=== PATIENT | female | born 1945 | race Caucasian/White ===

== ENCOUNTER 2018-09-25 14:21 | Inpatient (IN) ==
[2018-09-26] MEDS ORDERED: Loratadine 10 MG TABLET PO PRN (15:54)
[2018-09-26] MEDS ORDERED: Ipratropium/Albuterol Neb 3 ML IH PRN (15:55)
[2018-09-26] MEDS: *HR* OxyCODONE Immed Rel 5 MG TABLET PO PRN ×2 (17:51→23:37)
[2018-09-26 17:56] LABS: Bilirubin,Urine Negative (Negative); Blood,Urine Negative (Negative); Clarity,Urine Clear (Clear); Color,Urine Yellow (Yellow); Glucose,Urine (UA) Normal (Normal); Ketones,Urine Negative (Negative); Leukocyte Esterase,Urine Negative (Negative); Nitrite,Urine Negative (Negative); Protein,Urine Negative (Neg-Trace); Specific Gravity,Urine 1.015 (1.010-1.025); Urobilinogen,Urine Normal (Normal)
--- NOTE | 2018-09-26 19:10 | Internal Med History&Physical ---
Date of Encounter: 09/26/18 Time of Encounter: 20:22 Assessment and Plan (1) Status post reverse arthroplasty of right shoulder Current visit: Yes Status: Acute here for deconditioning associated with the shoulder surgery. her for pt/ot/rt to get her ambulating and back to her home environment. Prior to this she was living with her doing the cooking and cleaning and driving (2) Breast cancer Current visit: No Status: Acute will hold the letrozole due to the increased risk of thromboembolic and being less mobile with the recent surgery. Her partial mastectomy was done in October Qualifiers: Breast location: unspecified site of breast Estrogen receptor status: unspecified Patient sex: female Laterality: unspecified laterality Qualified Code(s): C50.919 - Malignant neoplasm of unspecified site of unspecified female breast (3) Anemia Current visit: No Status: Chronic will continue to follow check cbc in the am Qualifiers: Anemia type: unspecified type Qualified Code(s): D64.9 - Anemia, unspecified (4) Gout Current visit: No Status: Chronic will continue the allopurinol not a current issue Qualifiers: Gout site: unspecified site Gout etiology: unspecified cause Presence of tophus: without tophus Qualified Code(s): M1A.9XX0 - Chronic gout, unspecified, without tophus (tophi) (5) Barretts esophagus Current visit: No Status: Chronic will continue the ppi she gets her egd with gi Qualifiers: Mays's esophagus type: with dysplasia of unspecified degree Qualified Code(s): K22.719 - Mays's esophagus with dysplasia, unspecified; K22.71 - Mays's esophagus with dysplasia (6) Asthma Current visit: No Status: Chronic will add duonebs as needed. Qualifiers: Asthma persistence: unspecified Asthma complication type: unspecified Qualified Code(s): J45.909 - Unspecified asthma, uncomplicated Internal Medicine - H&P: HPI Chief complaint: here for rehab Admitted From: Hospital to Hospital Transfer History of present illness: Ms. Morales is a 73 year old female who a right reverse total shoulder replacement. post op she had problems caring for herself. She was sent here for rehabilitation. She is complaining of pain but is acceptable. She has not quite felt right today she has been nauseated she did have an episode of emesis shortly after she got here she states she will thicken the back of the squad on the right down here. She has not had any diarrhea but she has had several movements with getting the Colace at [facility]. She has not had any belly pain. Her asthma has not been bothering her she has not had any cough wheezing or shortness of breath. She feels tired she is not energetic. She has not had any chest pain palpitations. Her heart rate has been high at [place]. She denies any dysuria or urinary frequency hematuria or incontinence. She is resting comfortably in the bed she is answering questions appropriately she did get up to the toilet she did need help getting up out of bed but other than that was able to ambulate and get to the toilet. Past Med Surg Social Fam HX - Past Medical History Medical history: asthma, cancer (breast cacner), GERD, hyperlipidemia, hypertension, osteoporosis, other (paraesophageal hernia s/p repair, anemia) Additional medical history: breast cancer,Barretts esophagus,artificial joints,anemia,invasive ductal carcinoma of left breast Psychiatric history: anxiety, depression - Past Surgical History Surgical History: appendectomy, breast surgery (left partial mastectomy 10/2015, left breast bx), knee replacement (right), orthopedic, other (right reverse total shoulder, right knee arthroscopy), other (bps 1971, multiple egd, vein stripping, paraesophageal hernia repair, colonoscopy) Additional surgical history: right knee,EGD,right arthroscopic knee,right knee replacement,vein stripping,colonoscopy,paraesophageal hernia repair,left breast biopsy,left partial mastectomy. tubal ligation. hiatal hernia - Social History Smoking Status: Never smoker Smokeless Tobacco Status: No Alcohol use: none Drug use: none - Family History Mother Living Status: Hx Family Cardiac Disorders: No Hx Family Respiratory Disorders: No Hx Family Cancer: Yes (Throat and kidney cancer) Hx Family GI Disorders: No Hx Family Endocrine Disorder: No Hx Family Neuromuscular Disorders: No Hx Family Neurologic Disorders: No Hx Family HEENT Disorders: No Hx Family Autoimmune Disorders: No Father History Unknown: Yes Internal Medicine - H&P: Meds Allopurinol [Zyloprim 300 MG] 300 mg PO DAILY 10/28/15 [History] Gabapentin [Neurontin] 300 tab PO TID 10/28/15 [History] Omeprazole [PriLOSEC] 20 mg PO DAILY 10/28/15 [History] Albuterol Sulfate [Albuterol Inhaler] 90 mcg IH Q4HR PRN 11/09/15 [History] Loratadine [Allergy Relief] 10 mg PO DAILY PRN 01/29/17 [History] Cholecalciferol (D-3) [Vitamin D] 5,000 unit PO DAILY 03/18/18 [History] Docusate Sodium [Colace] 100 mg PO BID 5 Days #10 capsule 09/23/18 [Rx] FLUoxetine HCl [Fluoxetine HCl] 10 mg PO DAILY 09/23/18 [History] Lisinopril/Hydrochlorothiazide [Zestoretic 20-25 mg Tablet] 1 tab PO DAILY 09/23/18 [History] OxyCODONE Immed Rel [Roxicodone 5 MG] 5 mg PO Q6HR PRN 7 Days #28 tablet 09/23/18 [Rx] Tramadol HCl [Ultram] 50 tab PO BID PRN 09/23/18 [History] Allergy/AdvReac Type Severity Reaction Status Date / Time No Known Allergies Allergy Verified 09/23/18 07:40 All Systems PM: A 10-system review of systems was performed and is negative for pertinent findings except as documented above in the HPI. - Constitutional Constitutional: fatigue, no chills, no fever(s), no falls - EENT Eyes: no change in vision Nose, mouth and throat: no sore throat - Cardiovascular Cardiovascular ROS IM: no chest pain, no dyspnea, no lightheadedness, no palpitations, no syncope - Respiratory Respiratory: no cough, no dyspnea, no hemoptysis, no wheezing - Gastrointestinal Gastrointestinal: vomiting (Once today after getting out of the squad.), no abdominal pain, no constipation, no diarrhea, no hematemesis, no hematochezia, no melena, no nausea - Genitourinary Genitourinary: no dysuria, no hematuria, no urinary frequency, no urinary incontinence - Musculoskeletal Musculoskeletal ROS IM: arthralgias (Of her hips that is chronic ongoing issue), limited range of motion (Of the right shoulder) - Integumentary Integumentary IM: no pruritus, no rash - Neurological Neurological ROS: no paresthesias - Constitutional Vitals: Temp Pulse Resp BP Pulse Ox 98.4 F 108 18 142/72 96 09/26/18 14:58 01/03/19 14:58 09/26/18 14:58 09/26/18 14:58 09/26/18 14:58 General appearance: Present: A&O X 3, pleasant, obese, answers questions appropriately - Head Head exam: Present: atraumatic, normocephalic - Neck Neck exam general surgery: Present: supple, trachea midline. Absent: lymphadenopathy - Respiratory Respiratory exam: Present: CTAB - Cardiovascular Cardiovascular exam: Present: RRR. Absent: systolic murmur - GI/Abdominal GI/Abdominal exam: Present: normal bowel sounds, soft, no peritoneal signs. Absent: distended, guarding, tenderness - Extremities Exam Extremities exam: Present: pedal edema, warm. Absent: cyanotic, mottling - Incison Incision: Present: clean and dry, intact (With honeycomb dressing) - Skin Skin exam: Present: dry, warm Internal Med - H&P Results - Labs Labs: Urine 09/26/18 Range/Units 17:00 Urine Color Yellow (Yellow) Urine Clarity Clear (Clear) Urine pH 7.0 (5.0-8.0) pH Units Ur Specific [place] 1.015 (1.010-1.025) Urine Protein Negative (Neg-Trace) mg/dL Urine Glucose (UA) Normal (Normal) mg/dL
[2018-09-26] MEDS: Gabapentin 300 MG CAPSULE PO SCH (19:47)
[2018-09-27 05:05] LABS: Basophils % 0.6 %; Eosinophils # 0.3 K/mcL (0.0-0.6); Eosinophils % 4.4 %; Hematocrit 33.9 % (35.3-44.9); Hemoglobin 11.5 g/dL (11.5-15.4); Immature Granulocytes % 0.3 % (0-4); Lymphocytes # 1.3 K/mcL (0.6-4.6); Lymphocytes % 18.8 %; Mean Corpuscular HGB Conc 33.9 g/dL (31.6-35.5); Mean Corpuscular Hemoglobin 32.9 pg (28.0-33.3); Mean Corpuscular Volume 96.9 fL (83.0-100.0); Mean Platelet Volume 10.7 fL (9.4-12.4); Monocytes # 0.7 K/mcL (0.0-1.3); Monocytes % 10.8 %; Neutrophils # 4.5 K/mcL (1.6-8.9); Platelet Count 172 K/mcL (140-400); Segmented Neutrophils % 65.1 %
[2018-09-27] MEDS: *HR* OxyCODONE Immed Rel 5 MG TABLET PO PRN ×3 (05:12→18:26)
[2018-09-27] MEDS: *HR* Enoxaparin 40 MG/0.4 ML SYRINGE SQ SCH (05:13)
[2018-09-27 05:20] LABS: BUN/Creatinine Ratio 29 (6-26); Blood Urea Nitrogen 17 mg/dL (8-23); Calcium 9.2 mg/dL (8.6-10.3); Carbon Dioxide 32 mEq/L (23-29); Chloride 97 mEq/L (98-107); Glucose 108 mg/dL (70-105); Osmolality,Calculated 286 (280-300); Potassium 3.1 mEq/L (3.5-5.1); Sodium 137 mEq/L (136-145); eGFR For Non-African Americans > 60 (> 60)
--- NOTE | 2018-09-27 07:50 | Internal Med Progress Note ---
Date of Encounter: 09/27/18 Time of Encounter: 07:50 - Assessment and plan (1) Status post reverse arthroplasty of right shoulder Current Visit: Yes Status: Acute Assessment and plan: She thinks she is doing well from a right shoulder surgery point of view. She thinks the pain is under reasonable control with Percocet. She denies any cardiac or respiratory symptoms. Her bowel movements have been frequent and she has now declined Colace. She will be evaluated today for her therapies. (2) HTN (hypertension) Current Visit: Yes Status: Chronic Assessment and plan: Blood pressure is under good control. Stay in the same medication. Qualifiers: Hypertension type: unspecified Qualified Code(s): I10 - Essential (primary) hypertension (3) Anemia Current Visit: Yes Status: Chronic Assessment and plan: Hemoglobin but is 11.5. No obvious bleeding. Qualifiers: Anemia type: unspecified type Qualified Code(s): D64.9 - Anemia, unspecified (4) Gout Current Visit: No Status: Chronic Qualifiers: Gout site: unspecified site Gout etiology: unspecified cause Presence of tophus: without tophus Qualified Code(s): M1A.9XX0 - Chronic gout, unsp ecified, without tophus (tophi) (5) Barretts esophagus Current Visit: No Status: Chronic Qualifiers: Mays's esophagus type: with dysplasia of unspecified degree Qualified Code(s): K22.719 - Mays's esophagus with dysplasia, unspecified; K22.71 - Mays's esophagus with dysplasia (6) Asthma Current Visit: No Status: Chronic Assessment and plan: No acute pulmonary symptoms. Continue same medications. Qualifiers: Asthma persistence: unspecified Asthma complication type: unspecified Qualified Code(s): J45.909 - Unspecified asthma, uncomplicated (7) Hypokalemia Current Visit: Yes Status: Acute Assessment and plan: Mild hypokalemia noted today. Supplement added. Repeat potassium order for tomorrow. (8) DVT prophylaxis Current Visit: Yes Status: Acute Assessment and plan: Patient is on Lovenox for DVT prophylaxis. - Subjective Interval history: Patient thinks she is doing well. She thinks the "stronger pain pill" has been helpful. She denies any cardiac or respiratory symptoms. Her bowels are moving well, and she is declining the Colace now. She has not had PT or OT evaluation, that is pending today. - Constitutional Vitals: Temp Pulse Resp BP Pulse Ox 99.2 F 103 16 122/75 95 09/27/18 06:42 09/27/18 06:42 09/27/18 06:42 09/27/18 06:42 09/27/18 06:42 General appearance: Present: A&O X 3, pleasant, obese, answers questions appropriately - Respiratory Respiratory exam: Present: CTAB - Cardiovascular Cardiovascular exam: Present: RRR, +S1, +S2 - GI/Abdominal GI/Abdominal exam: Present: soft. Absent: tenderness - Extremities Exam Extremities exam: Absent: calf tenderness, pedal edema, tenderness - Incison Comments: Right anterior shoulder shows nicely healing incision with honeycomb dressing with clear overlay. No signs of bleeding or infection. She has appropriate tenderness. No significant bruising. Internal Medicine: Result - Labs CBC & Chem 7: 09/27/18 04:56 09/27/18 04:56 Labs: Short CBC 09/27/18 Range/Units 04:56 WBC 6.9 (4.3-11.1) K/mcL Hgb 11.5 (11.5-15.4) g/dL Hct 33.9 L (35.3-44.9) % Plt Count 172 (140-400) K/mcL Neutrophils # 4.5 (1.6-8.9) K/mcL BMP 09/27/18 04:56 Sodium 137 Potassium 3.1 L Chloride 97 L Carbon Dioxide 32 H BUN 17 Creatinine 0.58 L Glucose 108 H Calcium 9.2 Urine 09/26/18 Range/Units 17:00 Urine Color Yellow (Yellow) Urine Clarity Clear (Clear) Urine pH 7.0 (5.0-8.0) pH Units Ur Specific [place] 1.015 (1.010-1.025) Urine Protein Negative (Neg-Trace) mg/dL Urine Glucose (UA) Normal (Normal) mg/dL Potassium is slightly low. Consult Discharge Plan - Plan Referrals: Felisha Coyle MD [Primary Care Provider] -
[2018-09-27] MEDS: FLUoxetine HCl 10 MG CAPSULE PO SCH (08:43)
[2018-09-27] MEDS: Gabapentin 300 MG CAPSULE PO SCH ×3 (08:43→20:06)
[2018-09-27] MEDS: Cholecalciferol (D-3) 1,000 UNIT TABLET PO SCH (08:43)
[2018-09-27] MEDS: traMADol 50 MG TABLET PO PRN ×3 (08:45→20:06)
[2018-09-28] MEDS: *HR* OxyCODONE Immed Rel 5 MG TABLET PO PRN ×3 (05:05→19:12)
[2018-09-28] MEDS: *HR* Enoxaparin 40 MG/0.4 ML SYRINGE SQ SCH (05:05)
[2018-09-28 05:25] LABS: BUN/Creatinine Ratio 30 (6-26); Blood Urea Nitrogen 18 mg/dL (8-23); Calcium 9.2 mg/dL (8.6-10.3); Carbon Dioxide 33 mEq/L (23-29); Chloride 96 mEq/L (98-107); Glucose 106 mg/dL (70-105); Osmolality,Calculated 278 (280-300); Potassium 3.4 mEq/L (3.5-5.1); Sodium 133 mEq/L (136-145); eGFR For Non-African Americans > 60 (> 60)
[2018-09-28] MEDS: traMADol 50 MG TABLET PO PRN (08:13)
[2018-09-28] MEDS: FLUoxetine HCl 10 MG CAPSULE PO SCH (08:13)
[2018-09-28] MEDS: Gabapentin 300 MG CAPSULE PO SCH ×3 (08:14→22:36)
[2018-09-28] MEDS: Cholecalciferol (D-3) 1,000 UNIT TABLET PO SCH (08:14)
--- NOTE | 2018-09-28 12:54 | Internal Med Progress Note ---
Date of Encounter: 09/28/18 Time of Encounter: 12:52 - Assessment and plan (1) Status post reverse arthroplasty of right shoulder Current Visit: Yes Status: Acute Assessment and plan: She is continue with therapy and is asymptomatic other than postoperative pain which is controlled. (2) Hypokalemia Current Visit: Yes Status: Acute Assessment and plan: This persists and we will increase supplementation and check magnesium. (3) PSVT (paroxysmal supraventricular tachycardia) Current Visit: Yes Status: Acute Assessment and plan: This is verified by EKG and she has no ischemia. Perfusion and blood pressure seemed to be well maintained. However, will obtain serial troponins, hold therapy, treat her with a beta bunny (IV metoprolol worked before-she seems able to tolerate this from a respiratory standpoint.) We will use oral and IV as we are not cardiac unit and have no cardiac backup. We will obtain a follow- up EKG when her rate slows and tomorrow morning, as well. 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 Qualifiers: Estrogen receptor status: positive Qualified Code(s): C50.412 - Malignant neoplasm of upper-outer quadrant of left female breast; Z17.0 - Estrogen receptor positive status [ER+]; Z17.0 - Estrogen receptor positive status [ER+] (5) Barretts esophagus Current Visit: No Status: Chronic Assessment and plan: Clinically stable. We will continue home regimen and follow. Qualifiers: Mays's esophagus type: with dysplasia of unspecified degree Qualified Code(s): K22.719 - Mays's esophagus with dysplasia, unspecified; K22.71 - Mays's esophagus with dysplasia (6) Asthma Current Visit: No Status: Chronic Assessment and plan: No current findings, to exam. She is asymptomatic. Qualifiers: Asthma severity: unspecified severity Asthma persistence: unspecified Asthma complication type: unspecified Qualified Code(s): J45.909 - Unspecified asthma, uncomplicated - Subjective Interval history: Patient is having right shoulder pain but this is controlled with oxycodone. She says that between her right shoulder and left hip, she has frequent pain but is generally pleased with progress. She denies cardiac or pulmonary symptoms. She has no palpitations, lightheadedness or dizziness, weakness, etc. She feels she is moving bowels and bladder well. Patient has no complaint of chest discomfort, dyspnea, orthopnea, palpitations, nausea or vomiting, constipation or diarrhea, other changes in bowel habits, difficulty with urination, rash or itching, or other new complaints, except as mentioned above. Review of systems is otherwise negative. I discussed management of her care with nursing staff. - Constitutional Vitals: Temp Pulse Resp BP Pulse Ox 98.2 F 92 16 108/76 92 09/28/18 07:22 09/28/18 07:22 09/28/18 07:22 09/28/18 07:22 09/28/18 07:22 Exam: Examination: (Except as mentioned above): General: In no apparent distress. Alert and oriented 3. Nondiaphoretic. Head: Atraumatic and normocephalic. Respiratory: No use of accessory muscles. Lungs are clear throughout. Normal airflow. Cardiovascular: Markedly tachycardic with no murmur heard. The rhythm is regular but rapid. Abdomen: Bowel sounds are normal. No hepatosplenomegaly mass or tenderness appreciated. Obese and therefore difficult to palpate deeply. Patient is examined upright in chair and this also limits exam. Extremities: No cyanosis clubbing or edema. Skin: Warm and non-diaphoretic with no new lesions noted. Internal Medicine: Result - Labs CBC & Chem 7: 09/27/18 04:56 09/28/18 05:05 Labs: BMP 09/28/18 05:05 Sodium 133 L Potassium 3.4 L Chloride 96 L Carbon Dioxide 33 H BUN 18 Creatinine 0.61 Glucose 106 H Calcium 9.2 Consult Discharge Plan - Plan Referrals: Felisha Coyle MD [Primary Care Provider] -
[2018-09-29] MEDS: *HR* OxyCODONE Immed Rel 5 MG TABLET PO PRN ×5 (00:33→23:45)
[2018-09-29] MEDS: *HR* Enoxaparin 40 MG/0.4 ML SYRINGE SQ SCH (05:37)
[2018-09-29] MEDS: Cholecalciferol (D-3) 1,000 UNIT TABLET PO SCH (08:27)
[2018-09-29] MEDS: Gabapentin 300 MG CAPSULE PO SCH ×3 (08:27→21:14)
[2018-09-29] MEDS: FLUoxetine HCl 10 MG CAPSULE PO SCH (08:27)
[2018-09-29 16:32] LABS: Basophils # 0.1 K/mcL (0.0-0.2); Basophils % 0.7 %; Eosinophils # 0.4 K/mcL (0.0-0.6); Eosinophils % 5.1 %; Hematocrit 33.6 % (35.3-44.9); Hemoglobin 11.1 g/dL (11.5-15.4); Immature Granulocytes % 0.5 % (0-4); Lymphocytes # 1.6 K/mcL (0.6-4.6); Lymphocytes % 18.8 %; Mean Corpuscular Hemoglobin 32.9 pg (28.0-33.3); Mean Corpuscular Volume 99.7 fL (83.0-100.0); Mean Platelet Volume 11.3 fL (9.4-12.4); Monocytes # 1.1 K/mcL (0.0-1.3); Monocytes % 12.2 %; Neutrophils # 5.4 K/mcL (1.6-8.9); Platelet Count 203 K/mcL (140-400); Red Blood Count 3.37 M/mcL (3.82-4.97); Red Cell Distribution Width 14.3 % (11.5-14.5); Segmented Neutrophils % 62.7 %
--- NOTE | 2018-09-29 17:04 | Internal Med Progress Note ---
Date of Encounter: 09/29/18 Time of Encounter: 02:15 - Assessment and plan (1) Status post reverse arthroplasty of right shoulder Current Visit: Yes Status: Acute Assessment and plan: Clinically stable from this standpoint. (2) Hypokalemia Current Visit: Yes Status: Acute Assessment and plan: Will recheck tomorrow. (3) PSVT (paroxysmal supraventricular tachycardia) Current Visit: Yes Status: Acute Assessment and plan: After briefly starting IV Cardizem, in addition to oral metoprolol yesterday, she converted to sinus bradycardia. She has remained there with marginal blood pressure, thereafter. She had marginally elevated troponin at 0.7 and this fell 6 hours later to 0.5. EKG today shows only sinus bradycardia with no signs of ischemia. This was totally asymptomatic and the patient still has no complaints. I talked to her about the possibility of transferring to a cardiac unit, cardiology involvement, etc. She is not interested in any of this and explained the concerns and needing to make sure her safety is adequate she except some. She agrees cardiac consultation to determine whether or not we should continue the Cardizem, whether should she see an aircraft avionics technician, or have other procedure for other diagnosis of ischemia, etc. 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 Qualifiers: Mays's esophagus type: with dysplasia of unspecified degree Qualified Code(s): K22.719 - Mays's esophagus with dysplasia, unspecified; K22.71 - Mays's esophagus with dysplasia (6) Asthma Current Visit: No Status: Chronic Assessment and plan: No current signs or symptoms. Qualifiers: Asthma severity: unspecified severity Asthma persistence: unspecified Asthma complication type: unspecified Qualified Code(s): J45.909 - Unspecified asthma, uncomplicated - Time Spent With Patient Greater than 35 minutes - Subjective Interval history: The patient is totally asymptomatic from the standpoint of cardiopulmonary symptoms. She is irritated with repeated phlebotomy and telemetry. She wants no more phlebotomy and when I explained the fact that she had a slightly elevated troponin and the significance of myocardial injury, she accepts this and feels like the plan that we have is acceptable even though she is not pleased with it. I told her that we would have cardiology see tomorrow, if at all possible. She still has mild to moderate shoulder pain but is otherwise stable. Patient has no complaint of chest discomfort, dyspnea, orthopnea, palpitations, nausea or vomiting, constipation or diarrhea, other changes in bowel habits, difficulty with urination, rash or itching, or other new complaints, except as mentioned above. Review of systems is otherwise negative. I discussed management of her care with nursing staff. - Constitutional Vitals: Temp Pulse Resp BP Pulse Ox 98.1 F 64 16 103/72 93 09/29/18 12:21 09/29/18 12:21 09/29/18 12:21 09/29/18 12:21 09/29/18 12:21 Exam: Examination: (Except as mentioned above): General: In no apparent distress. Alert and oriented 3. Nondiaphoretic. Head: Atraumatic and normocephalic. Respiratory: No use of accessory muscles. Lungs are clear throughout. Normal airflow. Cardiovascular: Regular rate and rhythm without murmur appreciated. Abdomen: Bowel sounds are normal. No hepatosplenomegaly mass or tenderness appreciated. Obese and therefore difficult to palpate deeply. Patient is examined upright in chair and this also limits exam. Extremities: No cyanosis clubbing or edema. Skin: Warm and non-diaphoretic with no new lesions noted. Internal Medicine: Result - Labs CBC & Chem 7: 09/29/18 16:30 09/28/18 05:05 Labs: Short CBC 09/29/18 Range/Units 16:30 WBC 8.6 (4.3-11.1) K/mcL Hgb 11.1 L (11.5-15.4) g/dL Hct 33.6 L (35.3-44.9) % Plt Count 203 (140-400) K/mcL Neutrophils # 5.4 (1.6-8.9) K/mcL Cardiac Enzymes 09/28/18 09/29/18 09/29/18 Range/Units 18:50 00:38 07:25 Troponin I < 0.03 0.07 H* 0.05 H* (< 0.04) ng/mL Consult Discharge Plan - Plan Referrals: Felisha Coyle MD [Primary Care Provider] -
[2018-09-30 05:45] LABS: BUN/Creatinine Ratio 34 (6-26); Blood Urea Nitrogen 27 mg/dL (8-23); Calcium 9.2 mg/dL (8.6-10.3); Carbon Dioxide 29 mEq/L (23-29); Chloride 102 mEq/L (98-107); Glucose 97 mg/dL (70-105); Osmolality,Calculated 283 (280-300); Sodium 134 mEq/L (136-145); eGFR For Non-African Americans > 60 (> 60)
[2018-09-30] MEDS: *HR* Enoxaparin 40 MG/0.4 ML SYRINGE SQ SCH (05:54)
[2018-09-30] MEDS: *HR* OxyCODONE Immed Rel 5 MG TABLET PO PRN ×3 (05:55→20:30)
[2018-09-30] MEDS: FLUoxetine HCl 10 MG CAPSULE PO SCH (07:46)
[2018-09-30] MEDS: Gabapentin 300 MG CAPSULE PO SCH ×3 (07:46→20:30)
[2018-09-30] MEDS: Cholecalciferol (D-3) 1,000 UNIT TABLET PO SCH (07:46)
--- NOTE | 2018-09-30 08:26 | Internal Med Progress Note ---
Date of Encounter: 10/02/18 Time of Encounter: 08:26 - Assessment and plan (1) Status post reverse arthroplasty of right shoulder Current Visit: Yes Status: Acute Assessment and plan: here for pt, ot, ot, had to hold due to the tachycardia. heart rate is sinus today. will start therapy again. will let her shower if heart rate stays in range with the am therapy. (2) Breast cancer Current Visit: No Status: Acute Assessment and plan: holding med due to dvt risk Qualifiers: Breast location: unspecified site of breast Estrogen receptor status: unspecified Patient sex: female Laterality: unspecified laterality Qualified Code(s): C50.919 - Malignant neoplasm of unspecified site of unspecifi ed female breast (3) Anemia Current Visit: Yes Status: Chronic Assessment and plan: hg stable Qualifiers: Anemia type: unspecified type Qualified Code(s): D64.9 - Anemia, unspecified (4) Gout Current Visit: No Status: Chronic Assessment and plan: no current symptoms will continue with the allopurinol Qualifiers: Gout site: unspecified site Gout etiology: unspecified cause Chronicity: chronic Presence of tophus: without tophus Qualified Code(s): M1A.9XX0 - Chronic gout, unspecified, without tophus (tophi) (5) Barretts esophagus Current Visit: No Status: Chronic Assessment and plan: will continue the ppi, no current symptoms Qualifiers: Mays's esophagus type: with dysplasia of unspecified degree Qualified Code(s): K22.719 - Mays's esophagus with dysplasia, unspecified; K22.71 - Mays's esophagus with dysplasia (6) Asthma Current Visit: No Status: Chronic Assessment and plan: not currently an issue no wheeze no sob Qualifiers: Asthma severity: unspecified severity Asthma persistence: unspecified Asthma complication type: unspecified Qualified Code(s): J45.909 - Unspecified asthma, uncomplicated (7) DVT prophylaxis Current Visit: Yes Status: Acute (8) PSVT (paroxysmal supraventricular tachycardia) Current Visit: Yes Status: Acute Assessment and plan: normal sinus on diltiazem. got abhijeet with the beta bunny. will continue tele. echo - Subjective Interval history: she is ready to do therapy today, she is motivated to geta shower and get home. she did not have chest pain, denies palpitation, no n/v, no diaphoresis, no dizzy, appetite is good. no urine or bowel complaints. pain is acceptable. shoulder is sore. she is frustrated about the tachycardia though - Constitutional Vitals: Temp Pulse Resp BP Pulse Ox 98.1 F 75 15 125/80 92 09/30/18 07:37 09/30/18 07:37 09/30/18 07:37 09/30/18 07:37 09/30/18 07:37 General appearance: Present: A&O X 3, no acute distress, answers questions appropriately - Head Head exam: Present: atraumatic, normocephalic - Respiratory Respiratory exam: Present: CTAB - Cardiovascular Cardiovascular exam: Present: RRR, +S1, +S2 - GI/Abdominal GI/Abdominal exam: Present: normal bowel sounds, soft, no peritoneal signs. Absent: distended, guarding, tenderness - Extremities Exam Extremities exam: Present: warm. Absent: cyanotic, pedal edema - Incison Incision: Present: clean and dry, intact (honeycomb dressing intact) - Skin Skin exam: Present: dry, warm Internal Medicine: Result - Labs CBC & Chem 7: 10/02/18 05:40 10/02/18 05:40 Labs: Short CBC 09/29/18 Range/Units 16:30 WBC 8.6 (4.3-11.1) K/mcL Hgb 11.1 L (11.5-15.4) g/dL Hct 33.6 L (35.3-44.9) % Plt Count 203 (140-400) K/mcL Neutrophils # 5.4 (1.6-8.9) K/mcL BMP 09/30/18 05:27 Sodium 134 L Potassium 5.0 Chloride 102 Carbon Dioxide 29 BUN 27 H Creatinine 0.80 Glucose 97 Calcium 9.2 Cardiac Enzymes 09/30/18 Range/Units 05:27 Troponin I < 0.03 (< 0.04) ng/mL Consult Discharge Plan - Plan Referrals: Felisha Coyle MD [Primary Care Provider] -
--- NOTE | 2018-09-30 14:48 | Electrocardiograph Report ---
[place] [id number] Test Date: 2018-09-28 Pat Name: Maria Alejandra Morales Department: 2001 Room: 102 Gender: F [employer]: : 1945 Requested By: Arnulfo Reyes Order Number: [id number] Reading MD: Deisy Johnson Measurements Intervals [place] Rate: 167 P: [place]: 0 QRS: -3 QRSD: 78 T: 0 QT: 188 QTc: 279 Interpretive Statements SUPRAVENTRICULAR TACHYCARDIA NONSPECIFIC ST & T-WAVE ABNORMALITY Electronically Signed On 09-30-2018 14:47:20 EST by Deisy Johnson
--- NOTE | 2018-09-30 16:16 | Electrocardiograph Report ---
[address] [address] Test Date: 2018-09-29 Pat Name: Maria Alejandra Morales Department: 2001 Room: 102 Gender: F Investor Relations Associate: : 1945 Requested By: Arnulfo Reyes Order Number: [id number] Reading MD: Deisy Johnson Measurements Intervals [place] Rate: 60 P: 9 MD: 205 QRS: 5 QRSD: 86 T: 32 QT: 454 QTc: 454 Interpretive Statements SINUS RHYTHM LOW QRS VOLTAGE IN PRECORDIAL LEADS [QRS DEFLECTION < 1.0 mV IN CHEST LEADS] Electronically Signed On 09-30-2018 16:15:24 EST by Deisy Johnson
[2018-10-01] MEDS: *HR* OxyCODONE Immed Rel 5 MG TABLET PO PRN ×4 (00:32→20:10)
[2018-10-01] MEDS: *HR* Enoxaparin 40 MG/0.4 ML SYRINGE SQ SCH (05:41)
[2018-10-01 06:12] LABS: BUN/Creatinine Ratio 27 (6-26); Blood Urea Nitrogen 20 mg/dL (8-23); Calcium 9.5 mg/dL (8.6-10.3); Carbon Dioxide 27 mEq/L (23-29); Chloride 99 mEq/L (98-107); Glucose 106 mg/dL (70-105); Osmolality,Calculated 283 (280-300); Sodium 135 mEq/L (136-145); eGFR For Non-African Americans > 60 (> 60)
[2018-10-01] MEDS: FLUoxetine HCl 10 MG CAPSULE PO SCH (08:37)
[2018-10-01] MEDS: Gabapentin 300 MG CAPSULE PO SCH ×3 (08:37→20:10)
[2018-10-01] MEDS: Cholecalciferol (D-3) 1,000 UNIT TABLET PO SCH (08:37)
[2018-10-01] MEDS: traMADol 50 MG TABLET PO PRN ×2 (08:41→16:33)
--- NOTE | 2018-10-01 10:54 | Internal Med Progress Note ---
Date of Encounter: 10/02/18 Time of Encounter: 10:54 - Assessment and plan (1) Status post reverse arthroplasty of right shoulder Current Visit: Yes Status: Acute Assessment and plan: here for pt, ot, ot, had to hold due to the tachycardia. heart rate is sinus today. she is participating in therapy, (2) Breast cancer Current Visit: No Status: Acute Assessment and plan: holding med due to dvt risk Qualifiers: Breast location: unspecified site of breast Estrogen receptor status: unspecified Patient sex: female Laterality: unspecified laterality Qualified Code(s): C50.919 - Malignant neoplasm of unspecified site of unspecified female breast (3) Anemia Current Visit: Yes Status: Chronic Assessment and plan: hg stable Qualifiers: Anemia type: unspecified type Qualified Code(s): D64.9 - Anemia, unspecified (4) Gout Current Visit: No Status: Chronic Assessment and plan: no current symptoms will continue with the allopurinol Qualifiers: Gout site: unspecified site Gout etiology: unspecified cause Chronicity: chronic Presence of tophus: without tophus Qualified Code(s): M1A.9XX0 - Chronic gout, unspecified, without tophus (tophi) (5) Barretts esophagus Current Visit: No Status: Chronic Assessment and plan: will continue the ppi, no current symptoms Qualifiers: Mays's esophagus type: with dysplasia of unspecified degree Qualified Code(s): K22.719 - Mays's esophagus with dysplasia, unspecified; K22.71 - Mays's esophagus with dysplasia (6) Asthma Current Visit: No Status: Chronic Assessment and plan: not currently an issue no wheeze no sob Qualifiers: Asthma severity: unspecified severity Asthma persistence: unspecified Asthma complication type: unspecified Qualified Code(s): J45.909 - Unspecified asthma, uncomplicated (7) DVT prophylaxis Current Visit: Yes Status: Acute Assessment and plan: on lovenox (8) PSVT (paroxysmal supraventricular tachycardia) Current Visit: Yes Status: Acute Assessment and plan: normal sinus on diltiazem. got abhijeet with the beta bunny. will continue tele. echo showed 4 cm aorta. will discuss ct with pt.saw cardio will cont the diltiazem - Subjective Interval history: she is frustrated and ready to be home. no palpitations saw Sumeet last night at 7 pm. she liked the wheelchair that she sat in and in was comfortable. she did not have chest pain, denies palpitation, no n/v, no diaphoresis, no dizzy, appetite is good. no urine or bowel complaints. pain is acceptable. shoulder is sore. she is frustrated about the tachycardia though - Constitutional Vitals: Temp Pulse Resp BP Pulse Ox 98.1 F 90 15 107/79 90 10/01/18 08:35 10/01/18 08:35 10/01/18 08:35 10/01/18 08:35 10/01/18 08:35 General appearance: Present: A&O X 3, no acute distress, answers questions appropriately - Head Head exam: Present: atraumatic, normocephalic - Respiratory Respiratory exam: Present: CTAB - Cardiovascular Cardiovascular exam: Present: RRR, +S1, +S2. Absent: systolic murmur - GI/Abdominal GI/Abdominal exam: Present: normal bowel sounds, soft, no peritoneal signs. Absent: distended, guarding, mass, tenderness - Extremities Exam Extremities exam: Present: pedal edema - Incison Incision: Present: clean and dry, intact (honeycomb intact) - Skin Skin exam: Present: dry, warm. Absent: rash Internal Medicine: Result - Labs CBC & Chem 7: 10/02/18 05:40 10/02/18 05:40 Labs: BMP 10/01/18 05:50 Sodium 135 L Potassium 4.0 Chloride 99 Carbon Dioxide 27 BUN 20 Creatinine 0.75 Glucose 106 H Calcium 9.5 Consult Discharge Plan - Plan Referrals: Felisha Coyle MD [Primary Care Provider] -
[2018-10-02 05:51] LABS: Basophils # 0.1 K/mcL (0.0-0.2); Basophils % 0.8 %; Eosinophils # 0.3 K/mcL (0.0-0.6); Eosinophils % 4.3 %; Hematocrit 30.4 % (35.3-44.9); Hemoglobin 10.1 g/dL (11.5-15.4); Immature Granulocytes % 0.4 % (0-4); Lymphocytes # 1.1 K/mcL (0.6-4.6); Lymphocytes % 15.4 %; Mean Corpuscular HGB Conc 33.2 g/dL (31.6-35.5); Mean Corpuscular Hemoglobin 32.8 pg (28.0-33.3); Mean Corpuscular Volume 98.7 fL (83.0-100.0); Mean Platelet Volume 11.2 fL (9.4-12.4); Monocytes # 1.1 K/mcL (0.0-1.3); Neutrophils # 4.7 K/mcL (1.6-8.9); Platelet Count 197 K/mcL (140-400); Red Blood Count 3.08 M/mcL (3.82-4.97); Red Cell Distribution Width 14.4 % (11.5-14.5); Segmented Neutrophils % 64.1 %
[2018-10-02] MEDS: traMADol 50 MG TABLET PO PRN ×2 (05:57→19:36)
[2018-10-02] MEDS: *HR* Enoxaparin 40 MG/0.4 ML SYRINGE SQ SCH (05:58)
[2018-10-02 06:06] LABS: BUN/Creatinine Ratio 27 (6-26); Blood Urea Nitrogen 29 mg/dL (8-23); Calcium 9.4 mg/dL (8.6-10.3); Carbon Dioxide 29 mEq/L (23-29); Chloride 100 mEq/L (98-107); Glucose 100 mg/dL (70-105); Osmolality,Calculated 282 (280-300); Potassium 3.9 mEq/L (3.5-5.1); Sodium 133 mEq/L (136-145); eGFR For Non-African Americans 51 (> 60)
[2018-10-02] MEDS: Gabapentin 300 MG CAPSULE PO SCH ×3 (08:08→19:36)
[2018-10-02] MEDS: Cholecalciferol (D-3) 1,000 UNIT TABLET PO SCH (08:08)
[2018-10-02] MEDS: FLUoxetine HCl 10 MG CAPSULE PO SCH (08:08)
[2018-10-02] MEDS: *HR* OxyCODONE Immed Rel 5 MG TABLET PO PRN (11:47)
--- NOTE | 2018-10-02 13:48 | Internal Med Progress Note ---
Date of Encounter: 10/02/18 Time of Encounter: 14:54 - Assessment and plan (1) Status post reverse arthroplasty of right shoulder Current Visit: Yes Status: Acute Assessment and plan: here for pt, ot, ot, heart rate is sinus today. she is participating in therapy, she is getting loopy with the narcotic will increase the tramadol frequency and stop the narcotic, discussed with pt and (2) Breast cancer Current Visit: No Status: Acute Assessment and plan: holding med due to dvt risk Qualifiers: Breast location: unspecified site of breast Estrogen receptor status: unspecified Patient sex: female Laterality: unspecified laterality Qualified Code(s): C50.919 - Malignant neoplasm of unspecified site of unspecified female breast (3) Anemia Current Visit: Yes Status: Chronic Assessment and plan: hg stable Qualifiers: Anemia type: unspecified type Qualified Code(s): D64.9 - Anemia, unspecified (4) Gout Current Visit: No Status: Chronic Assessment and plan: no current symptoms will continue with the allopurinol Qualifiers: Gout site: unspecified site Gout etiology: unspecified cause Chronicity: chronic Presence of tophus: without tophus Qualified Code(s): M1A.9XX0 - Chronic gout, unspecified, without tophus (tophi) (5) Barretts esophagus Current Visit: No Status: Chronic Assessment and plan: will continue the ppi, no current symptoms Qualifiers: Mays's esophagus type: with dysplasia of unspecified degree Qualified Code(s): K22.719 - Mays's esophagus with dysplasia, unspecified; K22.71 - Mays's esophagus with dysplasia (6) Asthma Current Visit: No Status: Chronic Assessment and plan: not currently an issue no wheeze no sob Qualifiers: Asthma severity: unspecified severity Asthma persistence: unspecified Asthma complication type: unspecified Qualified Code(s): J45.909 - Unspecified asthma, uncomplicated (7) DVT prophylaxis Current Visit: Yes Status: Acute Assessment and plan: on lovenox (8) PSVT (paroxysmal supraventricular tachycardia) Current Visit: Yes Status: Acute Assessment and plan: normal sinus on diltiazem. got abhijeet with the beta bunny. will continue tele. echo showed 4 cm aorta. pt.saw cardio will cont the diltiazem (9) Ascending aorta dilatation Current Visit: Yes Status: Acute Assessment and plan: will order ct thorax (10) Elevated troponin Current Visit: Yes Status: Acute Assessment and plan: she saw cardio roberts. ceballos due to strain from the tachycardia - Subjective Interval history: walked to the gift show did well. no palpitations saw Sumeet . she did not have chest pain, denies palpitation, no n/v, no diaphoresis, no dizzy, appetite is good. no urine or bowel complaints. pain is acceptable. shoulder is sore. she does get loopy with the oxycodone, will stop that and increase the frequency of the tramadol that she tolerates ok - Constitutional Vitals: Temp Pulse Resp BP Pulse Ox 98.1 F 75 15 106/68 94 10/02/18 05:53 10/02/18 05:53 10/02/18 05:53 10/02/18 05:53 10/02/18 05:53 General appearance: Present: A&O X 3, no acute distress, answers questions appropriately Internal Medicine: Result - Labs CBC & Chem 7: 10/02/18 05:40 10/02/18 05:40 Labs: Short CBC 10/02/18 Range/Units 05:40 WBC 7.4 (4.3-11.1) K/mcL Hgb 10.1 L (11.5-15.4) g/dL Hct 30.4 L (35.3-44.9) % Plt Count 197 (140-400) K/mcL Neutrophils # 4.7 (1.6-8.9) K/mcL BMP 10/02/18 05:40 Sodium 133 L Potassium 3.9 Chloride 100 Carbon Dioxide 29 BUN 29 H Creatinine 1.06 Glucose 100 Calcium 9.4 Consult Discharge Plan - Plan Referrals: Felisha Coyle MD [Primary Care Provider] -
[2018-10-02] MEDS ORDERED: ISOVUE-370 200 ML INFUS..BTL IV ONE (14:52)
[2018-10-02] MEDS ORDERED: ISOVUE-370 100 ML INFUS..BTL IVP ONE (15:02)
[2018-10-03] MEDS: traMADol 50 MG TABLET PO PRN ×3 (05:54→23:18)
[2018-10-03] MEDS: *HR* Enoxaparin 40 MG/0.4 ML SYRINGE SQ SCH (05:54)
[2018-10-03] MEDS: FLUoxetine HCl 10 MG CAPSULE PO SCH (08:33)
[2018-10-03] MEDS: Gabapentin 300 MG CAPSULE PO SCH ×3 (08:33→20:24)
[2018-10-03] MEDS: Cholecalciferol (D-3) 1,000 UNIT TABLET PO SCH (08:33)
--- NOTE | 2018-10-03 12:32 | Internal Med Progress Note ---
Date of Encounter: 10/03/18 Time of Encounter: 12:56 - Assessment and plan (1) Status post reverse arthroplasty of right shoulder Current Visit: Yes Status: Acute Assessment and plan: here for pt, ot, ot, heart rate is sinus today. she is participating in therapy,she is doing ok with holding the narcotic and just taking tramdol. states she is not loopy now. going home tomorrow. pain is acceptable will see ortho on sunday (2) Breast cancer Current Visit: No Status: Acute Assessment and plan: holding med due to dvt risk Qualifiers: Breast location: unspecified site of breast Estrogen receptor status: unspecified Patient sex: female Laterality: unspecified laterality Qualified Code(s): C50.919 - Malignant neoplasm of unspecified site of unspecified female breast (3) Anemia Current Visit: Yes Status: Chronic Assessment and plan: hg stable Qualifiers: Anemia type: unspecified type Qualified Code(s): D64.9 - Anemia, unspe cified (4) Gout Current Visit: No Status: Chronic Assessment and plan: no current symptoms will continue with the allopurinol Qualifiers: Gout site: unspecified site Gout etiology: unspecified cause Chronicity: chronic Presence of tophus: without tophus Qualified Code(s): M1A.9XX0 - Chronic gout, unspecified, without tophus (tophi) (5) Barretts esophagus Current Visit: No Status: Chronic Assessment and plan: will continue the ppi, no current symptoms Qualifiers: Mays's esophagus type: with dysplasia of unspecified degree Qualified Code(s): K22.719 - Mays's esophagus with dysplasia, unspecified; K22.71 - Mays's esophagus with dysplasia (6) Asthma Current Visit: No Status: Chronic Assessment and plan: not currently an issue no wheeze no sob Qualifiers: Asthma severity: unspecified severity Asthma persistence: unspecified As thma complication type: unspecified Qualified Code(s): J45.909 - Unspecified asthma, uncomplicated (7) DVT prophylaxis Current Visit: Yes Status: Acute Assessment and plan: on lovenox (8) PSVT (paroxysmal supraventricular tachycardia) Current Visit: Yes Status: Acute Assessment and plan: normal sinus on diltiazem. got abhijeet with the beta bunny. will continue te le. echo showed 4 cm aorta. pt.saw cardio will cont the diltiazem (9) Ascending aorta dilatation Current Visit: Yes Status: Acute Assessment and plan: on the echo 3.[address], no aneurysm, will not need further follow up (10) Elevated troponin Current Visit: Yes Status: Acute Assessment and plan: she saw cardio roberts. ceballos due to strain from the tachycardia (11) Renal cyst Current Visit: Yes Status: Acute Assessment and plan: noted on the ct scan benign appearing will not need further follow up - Subjective Interval history: . no palpitations. she did not have chest pain, denies palpitation, no n/v, no diaphoresis, no dizzy, appetite is good. no urine or bowel complaints. pain is acceptable. shoulder is sore. seh did ok with stopping the oxycodone and just using the ultram she is not as confused - Constitutional Vitals: Temp Pulse Resp BP Pulse Ox 97.6 F 75 14 104/70 93 10/03/18 05:42 10/03/18 05:42 10/03/18 05:42 10/03/18 05:42 10/03/18 05:42 General appearance: Present: A&O X 3, no acute distress, answers questions appropriately - Head Head exam: Present: atraumatic, normocephalic - Neck Neck exam general surgery: Present: normal inspection, supple. Absent: lymphade nopathy - Respiratory Respiratory exam: Present: CTAB - Cardiovascular Cardiovascular exam: Present: RRR, +S1, +S2. Absent: systolic murmur - GI/Abdominal GI/Abdominal exam: Present: normal bowel sounds, soft, no peritoneal signs. Absent: distended, mass - Extremities Exam Extremities exam: Present: warm. Absent: pedal edema - Incison Incision: Present: clean and dry, intact. Absent: erythema - Skin Skin exam: Present: dry, warm. Absent: rash Internal Medicine: Result - Labs CBC & Chem 7: 10/02/18 05:40 10/02/18 05:40 - Impressions Impressions Chest CTA 10/02/18 14:52 IMPRESSION: Ectasia of the thoracic aorta. No aneurysm is identified. No acute vascular abnormality is appreciated. Moderate-sized hiatal hernia. Mild diffuse fatty infiltration of the liver. D/ / Jose Alejandro Dillon MD / Jose Alejandro Dillon MD Interpreting Provider: Jose Alejandro Dillon MD Consult Discharge Plan - Plan Referrals: Felisha Coyle MD [Primary Care Provider] - Prescriptions: Tramadol HCl [Ultram] 50 tab PO Q6HR PRN 7 Days #30 tablet PRN Reason: Mild To Moderate Pain Diltiazem CD (24hr) [Cardizem CD] 120 mg PO DAILY #30 cap.er.24h
--- NOTE | 2018-10-03 12:56 | Discharge Summary ---
Date of Encounter: 10/04/18 Time of Encounter: 12:32 - Discharge Diagnosis (1) Status post reverse arthroplasty of right shoulder Priority: Primary Status: Acute Comments: He came here because of the deconditioning after her reverse right shoulder. She had PT OT RT. She did progressed met her goal she was felt safe to go home. She was sent home with family. Discussed that I will give her a couple of days of Ultram but after that all further pain medicine needs to go through or so. She was get. On the narcotics that she was switched over to tramadol that did control her pain for the 3 days prior to her being discharged. At home with 30 pills and she was instructed and her daughter was notified over phone that any further pain medication would have to come from orthotopic discussed also that she is 12 weeks postop that continue narcotics long-term is not advisable and that she is good have to be weaned off these. (2) Breast cancer Priority: Secondary Status: Acute Comments: She will we did hold her medication due to the DVT risk she was an active while she was here discussed that if she is active in a week then she can go ahead and restart that but she is aware of the risk of the DVT with this medication especially with inactivity and postop she is going to discuss that with her oncologist. Qualifiers: Breast location: unspecified site of breast Estrogen receptor status: unspecified Patient sex: female Laterality: unspecified laterality Qualified Code(s): C50.919 - Malignant neoplasm of unspecified site of unspecified female breast (3) Anemia Priority: Secondary Status: Chronic Comments: Stable postop Qualifiers: Anemia type: unspecified type Qualified Code(s): D64.9 - Anemia, unspecified (4) Gout Priority: Secondary Status: Chronic Comments: sHe did not Have any troubles without this admission she was continued on her home dose of allopurinol. Qualifiers: Gout site: unspecified site Gout etiology: unspecified cause Chronicity: chronic Presence of tophus: without tophus Qualified Code(s): M1A.9XX0 - Chronic gout, unspecified, without tophus (tophi) (5) Barretts esophagus Priority: Secondary Status: Chronic Comments: That was nonissue she was kept on her home PPI. Qualifiers: Mays's esophagus type: with dysplasia of unspecified degree Qualified Code(s): K22.719 - Mays's esophagus with dysplasia, unspecified; K22.71 - Mays's esophagus with dysplasia (6) Asthma Priority: Secondary Status: Chronic Comments: That was not an issue this admission she did not have any cough wheezing or shortness of breath Qualifiers: Asthma severity: unspecified severity Asthma persistence: unspecified Asthma complication type: unspecified Qualified Code(s): J45.909 - Unspecified asthma, uncomplicated (7) DVT prophylaxis Priority: Secondary Status: Acute Comments: She was on Lovenox (8) PSVT (paroxysmal supraventricular tachycardia) Priority: Secondary Status: Acute Comments: She did have an episode where she had SVT she did receive IV Cardizem she did receive metoprolol but that made her bradycardic she continued on the IV Cardizem and then was transferred over to by mouth Cardizem her heart rate did remain in range afterwards. She had sinus rhythm she did see Shaan she had an echo he did not recommend any further changes in her medication will send her home on Cardizem as an outpatient. (9) Ascending aorta dilatation Priority: Secondary Status: Acute Comments: This was noted on the trans-thoracic echo. She underwent a CT scan that did not show any aortic aneurysm the aorto measured at 3.7 cm. No further follow-up is needed on this. There was an incidental calcified granuloma and along no further follow-up is warranted on that as well. (10) Elevated troponin Priority: Secondary Status: Acute Comments: He has no cardiac strain when she had the tachycardia into the 160s. On her troponin did come come down it was only a mild elevation she did see Sumeet she did have an echo. She will follow-up with Sumeet as an outpatient. (11) Renal cyst Priority: Secondary Status: Acute Comments: Discussed this is an incidental finding on her CT scan and that no further follow-up is warranted it is been present in the past she is aware of this. Discussed this with her present. Hospital course: Ms. Morales is a 73 year old female Came to [facility] for rehabilitation after her right reverse total shoulder arthroplasty. She had difficulty get not moving around she had deconditioning postop. She did progress with PT OT and RT she did eventually meet her goals where she was felt safe to go home. Although she really likes her stay here and was hesitant about going home. She was concerned about things like getting her socks and shoes on. Therapy did work with with her to help improve those skills. Her is also able to help care for her. I did verify this with the that he was able to help her. She has 4 daughters and some of them are very involved in her care. She did develop an episode of SVT that she got metoprolol that made her bradycardic she ended up on IV Cardizem that was converted to oral Cardizem. She remained on telemetry for the remainder of the stay after she was converted to by mouth Cardizem every 6 hours her heart rate remained in range she was converted over to long-acting 2 days prior to discharge and her heart rate still remained in range. She saw Dr. Fay comes her troponins did elevate and she did have an echo there was a questionable dilated aortic root she underwent a CT scan of her thorax which showed no aortic aneurysm with an aorta of 3.7 cm there is an incidental calcified granuloma in the long. There was a renal cyst that was present prior. She was aware of these findings and there was no need for further follow-up on that. Her asthma gout and lipids did not present problems during the stay. We did change her she from narcotic pain medicine as she was getting loopy with that stable on just Ultram for the 3 days prior to discharge. Discussed with her the need to lean narcotic pain medicine due to the risk of respiratory suppression the risk of confusion and falls. Also that she is postop and is for postop pain and that eventually this medicines would have to be stopped. - Time Spent with Patient Total time spent providing and/or coordinating discharge services: - Discharge Medications Prescriptions: Tramadol HCl [Ultram] 50 tab PO Q6HR PRN 7 Days #30 tablet PRN Reason: Mild To Moderate Pain Diltiazem CD (24hr) [Cardizem CD] 120 mg PO DAILY #30 cap.er.24h Home Medications: Allopurinol [Zyloprim 300 MG] 300 mg PO DAILY 10/28/15 [History] Gabapentin [Neurontin] 300 tab PO TID 10/28/15 [History] Omeprazole [PriLOSEC] 20 mg PO DAILY 10/28/15 [History] Albuterol Sulfate [Albuterol Inhaler] 90 mcg IH Q4HR PRN 11/09/15 [History] Loratadine [Allergy Relief] 10 mg PO DAILY PRN 01/29/17 [History] Cholecalciferol (D-3) [Vitamin D] 5,000 unit PO DAILY 03/18/18 [History] FLUoxetine HCl [Fluoxetine HCl] 10 mg PO DAILY 09/23/18 [History] Lisinopril/Hydrochlorothiazide [Zestoretic 20-25 mg Tablet] 1 tab PO DAILY 09/23/18 [History] Calcium Carbonate [Tums] 1,000 mg PO Q4HR PRN tab.chew 10/03/18 [Rx] Diltiazem CD (24hr) [Cardizem CD] 120 mg PO DAILY #30 cap.er.24h 10/03/18 [Rx] Docusate [Colace] 100 mg PO BID PRN capsule 10/03/18 [Rx] Potassium Chloride 10 meq PO DAILY tab.er.prt 10/03/18 [Rx] Tramadol HCl [Ultram] 50 tab PO Q6HR PRN 7 Days #30 tablet 10/03/18 [Rx] Allergies/Adverse Reactions: Allergy/AdvReac Type Severity Reaction Status Date / Time No Known Allergies Allergy Verified 09/23/18 07:40 Date of admission: 09/26/18 14:51 Primary care physician: Felisha Coyle MD Consults: 09/26/18 15:16 Consult to Occupational Therapy [CONS] Routine Comment: Evaluate, develop and implement POC Reason for Consult: eval Does patient have active BEDREST order?: No Is patient medically & hemodynamically stable?: Yes Consult to Physical Therapy [CONS] Routine Comment: Evaluate, develop and implement POC Reason for Consult: eval Does patient have active BEDREST order?: No Is patient medically & hemodynamically stable?: Yes Consult to Recreational Therapy [CONS] Routine Comment: Evaluate, develop and implement POC Consult to Polystyrene Molding Machine Tender [CONS] Routine Reason for SW Consult: eval d/c planning 09/26/18 16:02 Consult to Physical Medicine/Rehab [CONS] Routine Reason for Consult: admit to rehab Time Notified: 16:03 Call Completed: Yes 09/29/18 14:15 Consult to Cardiology [CONS] Routine Comment: Sumeet Consulting Provider: Cardiology Margaret Reason for Consult: psvt Call Completed: No - Constitutional Vitals: Temp Pulse Resp BP Pulse Ox 97.6 F 75 14 104/70 93 10/03/18 05:42 10/03/18 05:42 10/03/18 05:42 10/03/18 05:42 10/03/18 05:42 General appearance: Present: A&O X 3, no acute distress, answers questions appropriately - Head Head exam: Present: atraumatic - Neck Neck exam general surgery: Present: supple, trachea midline. Absent: lymphadenopathy - Respiratory Respiratory exam: Present: CTAB - Cardiovascular Cardiovascular exam: Present: RRR, +S1, +S2. Absent: systolic murmur - GI/Abdominal GI/Abdominal exam: Present: normal bowel sounds, soft, no peritoneal signs. Absent: distended, guarding - Extremities Exam Extremities exam: Present: warm. Absent: pedal edema - Incison Incision: Present: clean and dry, intact - Skin Skin exam: Present: dry, warm - Patient Status Disposition: Home, Self-Care Condition: Good Overall status at discharge: patient is progressing back to baseline - Discharge Instructions Follow Up With: Felisha Coyle MD [Primary Care Provider] - 10/08/18 1:30 pm - Diet and Activity Activity: increase activity as tolerated
[2018-10-03] MEDS ORDERED: Diltiazem CD (24hr) 120 MG CAPSULE PO SCH (13:00)
[2018-10-03] MEDS: Diltiazem SR (12hr) 60 MG CAPSULE PO SCH (18:28)
[2018-10-04] MEDS: *HR* Enoxaparin 40 MG/0.4 ML SYRINGE SQ SCH (06:12)
[2018-10-04] MEDS: Diltiazem SR (12hr) 60 MG CAPSULE PO SCH (06:12)
[2018-10-04] MEDS: traMADol 50 MG TABLET PO PRN (06:13)
[2018-10-04] MEDS: FLUoxetine HCl 10 MG CAPSULE PO SCH (08:43)
[2018-10-04] MEDS: Gabapentin 300 MG CAPSULE PO SCH ×2 (08:43→15:13)
[2018-10-04] MEDS: Cholecalciferol (D-3) 1,000 UNIT TABLET PO SCH (08:43)
[2018-10-04] MEDS ORDERED: Diltiazem CD (24hr) 120 MG CAPSULE PO SCH (09:00)
[2018-10-04 11:35] VITALS: BP 114/83
[2018-10-04] MEDS ORDERED: Acetaminophen 325 MG TABLET PO PRN (12:11)
== END 2018-10-04 15:14 | disposition home or self-care (01) | DRG 560 ==
LOC: INPGRE 09-26 14:51
PROVIDERS: ADMIT Family Medicine; ATTEND Family Medicine

== ENCOUNTER 2019-03-18 15:00 | Inpatient (IN) ==
[2019-03-21] MEDS: Gabapentin 300 MG CAPSULE PO SCH (22:30)
[2019-03-21] MEDS: *HR* OxyCODONE Immed Rel 5 MG TABLET PO PRN (22:30)
[2019-03-22] MEDS: *HR* OxyCODONE Immed Rel 5 MG TABLET PO PRN ×3 (05:42→20:24)
[2019-03-22] MEDS: *HR* Enoxaparin 30 MG/0.3 ML SYRINGE SQ SCH ×2 (05:42→17:25)
[2019-03-22 05:49] LABS: Basophils % 0.4 %; Eosinophils # 0.4 K/mcL (0.0-0.6); Eosinophils % 6.3 %; Hematocrit 23.6 % (35.3-44.9); Hemoglobin 7.6 g/dL (11.5-15.4); Immature Granulocytes % 0.6 % (0-4); Lymphocytes # 1.2 K/mcL (0.6-4.6); Lymphocytes % 18.3 %; Mean Corpuscular HGB Conc 32.2 g/dL (31.6-35.5); Mean Corpuscular Hemoglobin 32.1 pg (28.0-33.3); Mean Corpuscular Volume 99.6 fL (83.0-100.0); Monocytes # 1.2 K/mcL (0.0-1.3); Monocytes % 17.4 %; Neutrophils # 3.9 K/mcL (1.6-8.9); Platelet Count 158 K/mcL (140-400); Red Blood Count 2.37 M/mcL (3.82-4.97); Red Cell Distribution Width 14.6 % (11.5-14.5); White Blood Count 6.8 K/mcL (4.3-11.1)
[2019-03-22 06:08] LABS: BUN/Creatinine Ratio 37 (6-26); Blood Urea Nitrogen 23 mg/dL (8-23); Calcium 9.2 mg/dL (8.6-10.3); Carbon Dioxide 31 mEq/L (23-29); Chloride 99 mEq/L (98-107); Glucose 103 mg/dL (70-105); Osmolality,Calculated 282 (280-300); Potassium 4.3 mEq/L (3.5-5.1); Sodium 134 mEq/L (136-145); eGFR For African Americans > 60 (> 60); eGFR For Non-African Americans > 60 (> 60)
[2019-03-22] MEDS: FLUoxetine HCl 10 MG CAPSULE PO SCH (08:55)
[2019-03-22] MEDS: Cholecalciferol (D-3) 1,000 UNIT (25MCG) TABLET PO SCH (08:55)
[2019-03-22] MEDS: Magnesium Oxide 400 MG TABLET PO SCH (08:55)
[2019-03-22] MEDS: Gabapentin 300 MG CAPSULE PO SCH ×2 (08:55→20:25)
[2019-03-22] MEDS: Diltiazem CD (24hr) 120 MG CAPSULE PO SCH (08:55)
[2019-03-22] MEDS: Metoprolol XL (24 HR) Succ 25 MG TAB.ER.24H PO SCH (09:36)
--- NOTE | 2019-03-22 13:10 | Internal Med History&Physical ---
Date of Encounter: 03/22/19 Time of Encounter: 13:05 Internal Medicine - H&P: HPI Admitted From: Hospital to Hospital Transfer Plans for Post Hospital Care: Home History of present illness: Ms. Morales is a 73 year old female Past Med Surg Social Fam HX - Past Medical History Medical history: arthritis, asthma, cancer, GERD, hyperlipidemia, hypertension, osteoporosis, other Additional medical history: breast cancer,Barretts esophagus,artificial joint s,anemia,invasive ductal carcinoma of left breast Psychiatric history: anxiety, depression - Past Surgical History Surgical History: appendectomy, breast surgery, knee replacement, orthopedic, other, other Additional surgical history: right knee,EGD,right arthroscopic knee,right knee replacement,vein stripping,colonoscopy,paraesophageal hernia repair,left breast biopsy,left lumpectomy with one month radiation. tubal ligation. hiatal hernia - Social History Smoking Status: Never smoker Smokeless Tobacco Status: No Alcohol use: none Drug use: none - Family History Mother Living Status: Hx Family Cardiac Disorders: No Hx Family Respiratory Disorders: No Hx Family Cancer: Yes (Throat cancer) Hx Family GI Disorders: No Hx Family Endocrine Disorder: No Hx Family Neuromuscular Disorders: No Hx Family Neurologic Disorders: No Hx Family HEENT Disorders: No Hx Family Autoimmune Disorders: No Brother Hx Family Cancer: Yes (head/neck ca) Father History Unknown: Yes Internal Medicine - H&P: Meds Allopurinol [Zyloprim 300 MG] 300 mg PO DAILY 10/28/15 [History] Gabapentin [Neurontin] 300 tab PO BID 10/28/15 [History] Omeprazole [PriLOSEC] 20 mg PO DAILY 10/28/15 [History] FLUoxetine HCl [Fluoxetine HCl] 10 mg PO DAILY 09/23/18 [History] Calcium Carbonate [Calcium] 500 mg PO DAILY 10/25/18 [History] Atorvastatin [Lipitor] 40 mg PO HS 01/20/19 [History] Letrozole [Femara] 2.5 mg PO DAILY 01/20/19 [History] Diltiazem CD (24hr) [Cardizem CD] 120 mg PO DAILY 02/06/19 [History] Albuterol Sulfate [Albuterol Inhaler] 2 puff IH Q4HR PRN 03/17/19 [History] Cholecalciferol (D-3) [Vitamin D] 5,000 unit PO DAILY 03/17/19 [History] Lisinopril/Hydrochlorothiazide [Zestoretic 10-12.5 mg Tablet] 1 tab PO DAILY 03/17/19 [History] Magnesium Oxide [Magnesium] 400 mg PO DAILY 03/17/19 [History] Metoprolol XL (24 HR) Succ [Toprol Xl] 25 mg PO DAILY 03/17/19 [History] Enoxaparin [Lovenox] 30 mg SQ Q12HR 14 Days #28 syringe 03/19/19 [Rx] Ferrous Sulfate 325 mg PO BIDWM tablet 03/19/19 [Rx] OxyCODONE Immed Rel [Roxicodone 5 MG] 5 mg PO Q4HR PRN 03/21/19 [History] Tramadol HCl [Ultram] 1 tab PO BID PRN 03/21/19 [History] Allergy/AdvReac Type Severity Reaction Status Date / Time No Known Allergies Allergy Verified 03/17/19 07:05 All Systems PM: A 10-system review of systems was performed and is negative for pertinent findings except as documented above in the HPI. - Breasts Additional comments: HZ OF DUCTAL BREAST CA - Cardiovascular Cardiovascular ROS IM: irregular heart rhythm Additional comments: PAROXYSMAL SUPERVENTRICULAR TACHYCARDIA,htn,hyPERLIPIDEMIA - Constitutional Vitals: Temp Pulse Resp BP Pulse Ox 98.3 F 100 16 104/69 99 03/22/19 06:50 03/22/19 11:30 03/22/19 11:30 03/22/19 11:30 03/22/19 11:30 General appearance: Present: A&O X 3, pleasant, answers questions appropriately - Head Head exam: Present: atraumatic, normocephalic - Neck Neck exam general surgery: Present: supple, trachea midline. Absent: lymphadenopathy - Respiratory Respiratory exam: Present: CTAB. Absent: accessory muscle use, rales, rhonchi, wheezes - Cardiovascular Cardiovascular exam: Present: RRR, +S1, +S2. Absent: diastolic murmur, gallop, rubs, systolic murmur - GI/Abdominal GI/Abdominal exam: Present: normal bowel sounds, soft, no peritoneal signs. Absent: distended, tenderness - Extremities Exam Extremities exam: Present: normal inspection, warm, radial pulses palpable and symmetrical. Absent: calf tenderness, cyanotic, pedal edema - Neurological Exam Neurological exam: Present: abnormal gait, CN II-XII intact, oriented X3, no focal deficits. Absent: pronater drift, facial droop, speech deficit Internal Med - H&P Results - Labs CBC & Chem 7: 03/22/19 05:25 03/22/19 05:25 Labs: Short CBC 03/22/19 Range/Units 05:25 WBC 6.8 (4.3-11.1) K/mcL Hgb 7.6 L (11.5-15.4) g/dL Hct 23.6 L (35.3-44.9) % Plt Count 158 (140-400) K/mcL Neutrophils # 3.9 (1.6-8.9) K/mcL BMP 03/22/19 05:25 Sodium 134 L Potassium 4.3 Chloride 99 Carbon Dioxide 31 H BUN 23 Creatinine 0.62 Glucose 103 Calcium 9.2
[2019-03-22] MEDS: traMADol 50 MG TABLET PO PRN (23:14)
[2019-03-23] MEDS: *HR* OxyCODONE Immed Rel 5 MG TABLET PO PRN ×4 (02:46→21:07)
[2019-03-23] MEDS: *HR* Enoxaparin 30 MG/0.3 ML SYRINGE SQ SCH ×2 (05:13→16:46)
[2019-03-23] MEDS: Gabapentin 300 MG CAPSULE PO SCH ×2 (07:34→21:08)
[2019-03-23] MEDS: Metoprolol XL (24 HR) Succ 25 MG TAB.ER.24H PO SCH (07:35)
[2019-03-23] MEDS: FLUoxetine HCl 10 MG CAPSULE PO SCH (07:35)
[2019-03-23] MEDS: Diltiazem CD (24hr) 120 MG CAPSULE PO SCH (07:35)
[2019-03-23] MEDS: Cholecalciferol (D-3) 1,000 UNIT (25MCG) TABLET PO SCH (07:35)
[2019-03-23] MEDS: Magnesium Oxide 400 MG TABLET PO SCH (07:35)
--- NOTE | 2019-03-23 12:49 | Internal Med Progress Note ---
Date of Encounter: 03/23/19 Time of Encounter: 12:45 - Subjective Interval history: I had a good day.No issues.resting today - Constitutional Vitals: Temp Pulse Resp BP Pulse Ox 98.5 F 93 17 104/70 90 03/23/19 08:15 03/23/19 08:15 03/22/19 19:57 03/23/19 08:15 03/23/19 08:15 General appearance: Present: A&O X 3, pleasant, answers questions appropriately - Head Head exam: Present: normocephalic - Respiratory Respiratory exam: Present: CTAB. Absent: accessory muscle use, rales, rhonchi, wheezes - Cardiovascular Cardiovascular exam: Present: RRR, +S1, +S2. Absent: diastolic murmur, gallop, rubs, systolic murmur - GI/Abdominal GI/Abdominal exam: Present: normal bowel sounds, soft, no peritoneal signs. Absent: distended, tenderness Internal Medicine: Result - Labs CBC & Chem 7: 03/22/19 05:25 03/22/19 05:25 Consult Discharge Plan - Plan Referrals: Felisha Coyle MD [Primary Care Provider] -
[2019-03-24] MEDS: *HR* Enoxaparin 30 MG/0.3 ML SYRINGE SQ SCH ×2 (05:13→16:44)
[2019-03-24] MEDS: Magnesium Oxide 400 MG TABLET PO SCH (09:21)
[2019-03-24] MEDS: Cholecalciferol (D-3) 1,000 UNIT (25MCG) TABLET PO SCH (09:21)
[2019-03-24] MEDS: FLUoxetine HCl 10 MG CAPSULE PO SCH (09:21)
[2019-03-24] MEDS: Diltiazem CD (24hr) 120 MG CAPSULE PO SCH (09:21)
[2019-03-24] MEDS: Gabapentin 300 MG CAPSULE PO SCH ×2 (09:21→19:56)
[2019-03-24] MEDS: Metoprolol XL (24 HR) Succ 25 MG TAB.ER.24H PO SCH (09:22)
[2019-03-24] MEDS: *HR* OxyCODONE Immed Rel 5 MG TABLET PO PRN ×3 (09:24→19:56)
--- NOTE | 2019-03-24 11:57 | Internal Med Progress Note ---
Date of Encounter: 03/24/19 Time of Encounter: 12:24 - Assessment and plan (1) Status post total hip replacement, right Current Visit: Yes Status: Acute Assessment and plan: here for pt/ot,rt (2) Anemia Current Visit: Yes Status: Chronic Assessment and plan: She had some anemia postop we will continue to follow this repeat CBC in the morning Qualifiers: Anemia type: unspecified type Qualified Code(s): D64.9 - Anemia, unspecified (3) Osteoporosis Current Visit: Yes Status: Chronic Qualifiers: Osteoporosis type: unspecified Presence of current pathological fracture: unspecified Qualified Code(s): M81.0 - Age-related osteoporosis without current pathological fracture (4) DVT prophylaxis Current Visit: Yes Status: Acute Assessment and plan: lovenox (5) H/O paroxysmal supraventricular tachycardia Current Visit: Yes Status: Chronic Assessment and plan: Around 103 maximum we will continue the Cardizem metoprolol continue to keep an eye on this (6) HTN (hypertension) Current Visit: Yes Status: Chronic Assessment and plan: She had some hypotension at [place] that has gotten better Qualifiers: Hypertension type: unspecified Qualified Code(s): I10 - Essential (primary) hypertension (7) HLD (hyperlipidemia) Current Visit: Yes Status: Chronic Assessment and plan: Will continue her home medication Qualifiers: Hyperlipidemia type: unspecified Qualified Code(s): E78.5 - Hyperlipidemia, unspecified (8) Gout Current Visit: No Status: Chronic Assessment and plan: Not a current issue she is not having pain from that right now. We will continue her allopurinol Qualifiers: Gout site: unspecified site Gout etiology: unspecified cause Chronicity: unspecified Qualified Code(s): M10.9 - Gout, unspecified (9) Urine frequency Current Visit: Yes Status: Acute Assessment and plan: Check urinalysis and culture she had this ever since she had hip surgery at [place] - Subjective Interval history: she is having pain the pain medication helps it. it is acceptable. no dizzy. she is having urine freq since surgery. she has trouble getting to the restroom and has had to use depends. no cp,no palp, no wheeze no sob. not much appetite. no abd pain no constipation. her leg is swollen since surgery around the thigh. no n/v - Constitutional Vitals: Temp Pulse Resp BP Pulse Ox 97.8 F 90 16 108/74 95 03/24/19 06:52 03/24/19 06:52 03/24/19 06:52 03/24/19 06:52 03/24/19 09:40 General appearance: Present: A&O X 3, pleasant, answers questions appropriately - Head Head exam: Present: atraumatic, normocephalic - Neck Neck exam general surgery: Present: supple, trachea midline. Absent: lymphadenopathy - Expanded Neck Exam Neck exam: Absent: carotid bruit - Respiratory Respiratory exam: Present: CTAB - Cardiovascular Cardiovascular exam: Present: RRR, +S1, +S2. Absent: systolic murmur - GI/Abdominal GI/Abdominal exam: Present: normal bowel sounds, soft, no peritoneal signs. Absent: distended, guarding, rebound, tenderness - Extremities Exam Extremities exam: Present: normal capillary refill, warm. Absent: mottling, pedal edema (but edema of the right thigh) - Incison Incision: Present: clean and dry, intact - Skin Skin exam: Present: dry, warm. Absent: rash Internal Medicine: Result - Labs CBC & Chem 7: 03/22/19 05:25 03/22/19 05:25 Consult Discharge Plan - Plan Referrals: Felisha Coyle MD [Primary Care Provider] -
[2019-03-24 15:29] LABS: Bilirubin,Urine Negative (Negative); Blood,Urine Negative (Negative); Clarity,Urine Clear (Clear); Color,Urine Yellow (Yellow); Glucose,Urine (UA) Normal (Normal); Ketones,Urine Negative (Negative); Leukocyte Esterase,Urine Small (Negative); Nitrite,Urine Negative (Negative); Protein,Urine Negative (Neg-Trace); Specific Gravity,Urine 1.015 (1.010-1.025); Urobilinogen,Urine Normal (Normal)
[2019-03-24 15:37] LABS: Bacteria,Urine Few per hpf (None-Few); Squamous Epithelial Cell,Urine Few per lpf (None-Few)
[2019-03-25] MEDS: *HR* Enoxaparin 30 MG/0.3 ML SYRINGE SQ SCH ×2 (05:45→16:29)
[2019-03-25] MEDS: *HR* OxyCODONE Immed Rel 5 MG TABLET PO PRN ×4 (05:45→20:46)
[2019-03-25 05:54] LABS: Basophils % 0.4 %; Eosinophils # 0.5 K/mcL (0.0-0.6); Eosinophils % 5.8 %; Hematocrit 25.8 % (35.3-44.9); Hemoglobin 8.5 g/dL (11.5-15.4); Immature Granulocytes % 0.8 % (0-4); Lymphocytes # 1.2 K/mcL (0.6-4.6); Lymphocytes % 15.7 %; Mean Corpuscular HGB Conc 32.9 g/dL (31.6-35.5); Mean Corpuscular Hemoglobin 32.8 pg (28.0-33.3); Mean Corpuscular Volume 99.6 fL (83.0-100.0); Mean Platelet Volume 10.7 fL (9.4-12.4); Neutrophils # 5.1 K/mcL (1.6-8.9); Platelet Count 235 K/mcL (140-400); Red Blood Count 2.59 M/mcL (3.82-4.97); Segmented Neutrophils % 64.3 %; White Blood Count 7.9 K/mcL (4.3-11.1)
[2019-03-25 06:13] LABS: BUN/Creatinine Ratio 32 (6-26); Blood Urea Nitrogen 20 mg/dL (8-23); Calcium 9.4 mg/dL (8.6-10.3); Carbon Dioxide 31 mEq/L (23-29); Chloride 99 mEq/L (98-107); Glucose 106 mg/dL (70-105); Osmolality,Calculated 287 (280-300); Potassium 4.2 mEq/L (3.5-5.1); Sodium 137 mEq/L (136-145); eGFR For African Americans > 60 (> 60); eGFR For Non-African Americans > 60 (> 60)
[2019-03-25] MEDS: Cholecalciferol (D-3) 1,000 UNIT (25MCG) TABLET PO SCH (08:25)
[2019-03-25] MEDS: FLUoxetine HCl 10 MG CAPSULE PO SCH (08:25)
[2019-03-25] MEDS: Gabapentin 300 MG CAPSULE PO SCH ×2 (08:25→20:46)
[2019-03-25] MEDS: Diltiazem CD (24hr) 120 MG CAPSULE PO SCH (08:25)
[2019-03-25] MEDS: Metoprolol XL (24 HR) Succ 25 MG TAB.ER.24H PO SCH (08:25)
[2019-03-25] MEDS: Magnesium Oxide 400 MG TABLET PO SCH (08:25)
[2019-03-26] MEDS: *HR* OxyCODONE Immed Rel 5 MG TABLET PO PRN ×4 (01:42→22:42)
[2019-03-26] MEDS: *HR* Enoxaparin 30 MG/0.3 ML SYRINGE SQ SCH ×2 (04:47→16:15)
[2019-03-26] MEDS: Metoprolol XL (24 HR) Succ 25 MG TAB.ER.24H PO SCH (07:40)
[2019-03-26] MEDS: Gabapentin 300 MG CAPSULE PO SCH ×2 (07:49→22:42)
[2019-03-26] MEDS: Cholecalciferol (D-3) 1,000 UNIT (25MCG) TABLET PO SCH (07:49)
[2019-03-26] MEDS: FLUoxetine HCl 10 MG CAPSULE PO SCH (07:49)
[2019-03-26] MEDS: Diltiazem CD (24hr) 120 MG CAPSULE PO SCH (07:49)
[2019-03-26] MEDS: Magnesium Oxide 400 MG TABLET PO SCH (07:49)
--- NOTE | 2019-03-26 11:41 | Internal Med Progress Note ---
Date of Encounter: 03/26/19 Time of Encounter: 13:58 - Assessment and plan (1) Status post total hip replacement, right Current Visit: Yes Status: Acute Assessment and plan: here for pt/ot,rt will likely d/c 7/5 if goals met. she is progressing (2) Anemia Current Visit: Yes Status: Chronic Assessment and plan: She had some anemia postop we will continue to follow it has been stable Qualifiers: Anemia type: unspecified type Qualified Code(s): D64.9 - Anemia, unspecified (3) Osteoporosis Current Visit: Yes Status: Chronic Qualifiers: Osteoporosis type: unspecified Presence of current pathological fracture: unspecified Qualified Code(s): M81.0 - Age-related osteoporosis without current pathological fracture (4) DVT prophylaxis Current Visit: Yes Status: Acute Assessment and plan: lovenox (5) H/O paroxysmal supraventricular tachycardia Current Visit: Yes Status: Chronic Assessment and plan: Around 103 maximum we will continue the Cardizem metoprolol continue to keep an eye on this (6) HTN (hypertension) Current Visit: Yes Status: Chronic Assessment and plan: She had some hypotension at [place] that has gotten better, stable on home medication Qualifiers: Hypertension type: unspecified Qualified Code(s): I10 - Essential (primary) hypertension (7) HLD (hyperlipidemia) Current Visit: Yes Status: Chronic Assessment and plan: Will continue her home medication Qualifiers: Hyperlipidemia type: unspecified Qualified Code(s): E78.5 - Hyperlipidemia, unspecified (8) Gout Current Visit: No Status: Chronic Assessment and plan: Not a current issue she is not having pain from that right now. We will continue her allopurinol Qualifiers: Gout site: unspecified site Gout etiology: unspecified cause Chronicity: unspecified Qualified Code(s): M10.9 - Gout, unspecified (9) Urine frequency Current Visit: Yes Status: Acute Assessment and plan: urine culture negative - Subjective Interval history: she is having pain the pain medication helps it. it is acceptable. no dizzy. she is feeling pretty good. progressing through therapy. no cp,no palp, no wheeze no sob. n no abd pain no constipation. her leg is swollen since surgery around the thigh. but much improved no n/v - Constitutional Vitals: Temp Pulse Resp BP Pulse Ox 98.4 F 86 16 98/64 93 03/26/19 07:29 03/26/19 07:29 03/26/19 07:29 03/26/19 07:29 03/26/19 07:29 General appearance: Present: A&O X 3, pleasant, answers questions appropriately - Head Head exam: Present: atraumatic, normocephalic - Neck Neck exam general surgery: Present: supple, trachea midline. Absent: lymphadenopathy - Respiratory Respiratory exam: Present: CTAB - Cardiovascular Cardiovascular exam: Present: RRR, +S1, +S2. Absent: systolic murmur - GI/Abdominal GI/Abdominal exam: Present: normal bowel sounds, soft, no peritoneal signs. Ab sent: distended, guarding, tenderness - Extremities Exam Extremities exam: Present: warm. Absent: pedal edema (but edema of the right thigh much improved) - Incison Incision: Present: clean and dry. Absent: draining, erythema - Skin Skin exam: Present: dry, warm. Absent: rash Internal Medicine: Result - Labs CBC & Chem 7: 03/25/19 05:30 03/25/19 05:30 Consult Discharge Plan - Plan Referrals: Felisha Coyle MD [Primary Care Provider] -
[2019-03-27] MEDS: traMADol 50 MG TABLET PO PRN ×2 (01:46→16:44)
[2019-03-27] MEDS: *HR* Enoxaparin 30 MG/0.3 ML SYRINGE SQ SCH ×2 (06:18→16:44)
[2019-03-27] MEDS: *HR* OxyCODONE Immed Rel 5 MG TABLET PO PRN ×3 (06:18→20:30)
[2019-03-27] MEDS: FLUoxetine HCl 10 MG CAPSULE PO SCH (08:18)
[2019-03-27] MEDS: Metoprolol XL (24 HR) Succ 25 MG TAB.ER.24H PO SCH (08:18)
[2019-03-27] MEDS: Cholecalciferol (D-3) 1,000 UNIT (25MCG) TABLET PO SCH (08:18)
[2019-03-27] MEDS: Gabapentin 300 MG CAPSULE PO SCH ×2 (08:18→20:30)
[2019-03-27] MEDS: Magnesium Oxide 400 MG TABLET PO SCH (08:18)
[2019-03-27] MEDS: Diltiazem CD (24hr) 120 MG CAPSULE PO SCH (08:18)
--- NOTE | 2019-03-27 13:17 | Internal Med Progress Note ---
Date of Encounter: 03/27/19 Time of Encounter: 13:15 - Assessment and plan (1) Status post total hip replacement, right Current Visit: Yes Status: Acute Assessment and plan: here for pt/ot,rt will likely d/c 7/5 if goals met. she is progressing (2) Anemia Current Visit: Yes Status: Chronic Assessment and plan: She had some anemia postop we will continue to follow it has been stable Qualifiers: Anemia type: unspecified type Qualified Code(s): D64.9 - Anemia, unspecified (3) Osteoporosis Current Visit: Yes Status: Chronic Qualifiers: Osteoporosis type: unspecified Presence of current pathological fracture: unspecified Qualified Code(s): M81.0 - Age-related osteoporosis without current pathological fracture (4) DVT prophylaxis Current Visit: Yes Status: Acute Assessment and plan: lovenox (5) H/O paroxysmal supraventricular tachycardia Current Visit: Yes Status: Chronic Assessment and plan: Around 103 maximum we will continue the Cardizem metoprolol continue to keep an eye on this (6) HTN (hypertension) Current Visit: Yes Status: Chronic Assessment and plan: She had some hypotension at [place] that has resolved, stable on home medication Qualifiers: Hypertension type: unspecified Qualified Code(s): I10 - Essential (primary) hypertension (7) HLD (hyperlipidemia) Current Visit: Yes Status: Chronic Qualifiers: Hyperlipidemia type: unspecified Qualified Code(s): E78.5 - Hyperlipidemia, unspecified (8) Gout Current Visit: No Status: Chronic Assessment and plan: Not a current issue she is not having pain from that right now. We will continue her allopurinol Qualifiers: Gout site: unspecified site Gout etiology: unspecified cause Chronicity: unspecified Qualified Code(s): M10.9 - Gout, unspecified (9) Urine frequency Current Visit: Yes Status: Acute - Subjective Interval history: she is having pain the pain medication helps it. it is acceptable. no dizzy. she is feeling pretty good. progressing through therapy. no cp,no palp, no wheeze no sob. no abd pain no constipation. her leg is swollen since surgery around the thigh. but much improved no n/v - Constitutional Vitals: Temp Pulse Resp BP Pulse Ox 98.8 F 89 16 107/70 93 03/27/19 07:16 03/27/19 07:16 03/27/19 07:16 03/27/19 07:16 03/27/19 07:16 General appearance: Present: A&O X 3, pleasant, answers questions appropriately - Head Head exam: Present: atraumatic, normocephalic - Neck Neck exam general surgery: Present: normal inspection, supple, trachea midline. Absent: lymphadenopathy - Respiratory Respiratory exam: Present: CTAB - Cardiovascular Cardiovascular exam: Present: RRR, +S1, +S2. Absent: systolic murmur - GI/Abdominal GI/Abdominal exam: Present: normal bowel sounds, no peritoneal signs. Absent: distended, guarding, soft - Extremities Exam Extremities exam: Present: normal capillary refill, warm. Absent: pedal edema (but edema of the right thigh improved) - Skin Skin exam: Present: dry, warm. Absent: rash Internal Medicine: Result - Labs CBC & Chem 7: 03/25/19 05:30 03/25/19 05:30 Consult Discharge Plan - Plan Referrals: Felisha Coyle MD [Primary Care Provider] - 04/02/19 9:45 am
--- NOTE | 2019-03-27 13:22 | Discharge Summary ---
Orders not resulted at time of discharge: Pending orders 03/28/19 04:00 BMP [Basic Metabolic Panel] AM 0400 Complete Blood Count [HEME] AM 0400 Date of Encounter: 03/28/19 Time of Encounter: 12:20 - Discharge Diagnosis (1) Status post total hip replacement, right Priority: Primary Status: Acute Comments: He came here for PT OT RT she progressed she met her goals she was felt to be safe at home she was discharged home in stable condition she is to follow-up with orthopedic she is to follow-up in the office. (2) Anemia Priority: Secondary Status: Chronic Comments: She had postop anemia it remained stable continue her on iron Qualifiers: Anemia type: unspecified type Qualified Code(s): D64.9 - Anemia, unspecified (3) Osteoporosis Priority: Secondary Status: Chronic Comments: no Changes to her home medication of was nonissue this admission Qualifiers: Osteoporosis type: unspecified Presence of current pathological fracture: unspecified Qualified Code(s): M81.0 - Age-related osteoporosis without current pathological fracture (4) DVT prophylaxis Priority: Secondary Status: Acute Comments: sHe was on Lovenox (5) H/O paroxysmal supraventricular tachycardia Priority: Secondary Status: Chronic Comments: She remained rate controlled while she was here she did have any palpitations or cardiac symptoms (6) HTN (hypertension) Priority: Secondary Status: Chronic Comments: He did get a little bit hypotensive at [facility] but she tolerated all her home medication here without any problems. Qualifiers: Hypertension type: unspecified Qualified Code(s): I10 - Essential (primary) hypertension (7) HLD (hyperlipidemia) Priority: Secondary Status: Chronic Comments: Changes were made her home medication Qualifiers: Hyperlipidemia type: unspecified Qualified Code(s): E78.5 - Hyperlipidemia, unspecified (8) Gout Priority: Secondary Status: Chronic Comments: Was not an issue she was kept on her home dose allopurinol she did not have any gout flare this admission Qualifiers: Gout site: unspecified site Gout etiology: unspecified cause Chronicity: unspecified Qualified Code(s): M10.9 - Gout, unspecified (9) Urine frequency Priority: Secondary Status: Acute Comments: She had urinary for to see if she came from [facility] urine culture did not grow a nything that did resolve she feels was related to the IV fluids that they gave her Hospital course: Ms. Andrew is a 73 year old female Who had a right total hip replacement done down at [place]. She came here for rehabilitation she did progress well postop she was able to be safe in her home environment she was sent home she is going to do outpatient therapy. She has an order from the orthopedic surgeon. She did have postop anemia that was stable she remained on iron. She has a history of atrial tachycardia that was not an issue she was maintained on her Cardizem and metoprolol. Her asthma was not an issue this admission. Her blood pressure was low down at [place] but that has since resolved she is on her home medication now. Her home medication patient was not change she was sent home with a prescription for [facility] for her narcotic pain medication she is aware that all narcotics go through one person. She was discharged home in stable condition to follow-up with or ortho office next week Discharge discussed with: patient, family - Time Spent with Patient Total time spent providing and/or coordinating discharge services: - Discharge Medications Prescriptions: New Acetaminophen [Tylenol] 1,000 mg PO Q4HR PRN tablet PRN Reason: Fever >101 Continued Allopurinol [Zyloprim 300 MG] 300 mg PO DAILY Omeprazole [PriLOSEC] 20 mg PO DAILY Gabapentin [Neurontin] 300 tab PO BID FLUoxetine HCl [Fluoxetine HCl] 10 mg PO DAILY Calcium Carbonate [Calcium] 500 mg PO DAILY Atorvastatin [Lipitor] 40 mg PO HS Letrozole [Femara] 2.5 mg PO DAILY Diltiazem CD (24hr) [Cardizem CD] 120 mg PO DAILY Metoprolol XL (24 HR) Succ [Toprol Xl] 25 mg PO DAILY Lisinopril/Hydrochlorothiazide [Zestoretic 10-12.5 mg Tablet] 1 tab PO DAILY Albuterol Sulfate [Proventil Inhaler] 2 puff IH Q4HR PRN PRN Reason: Shortness Of Breath Cholecalciferol (D-3) [Vitamin D] 5,000 unit PO DAILY Magnesium Oxide [Magnesium] 400 mg PO DAILY Enoxaparin [Lovenox] 30 mg SQ Q12HR 14 Days #28 syringe Ferrous Sulfate 325 mg PO BIDWM tablet OxyCODONE Immed Rel [Roxicodone 5 MG] 5 mg PO Q4HR PRN PRN Reason: Severe Pain Tramadol HCl [Ultram] 1 tab PO BID PRN PRN Reason: Moderate Pain Home Medications: Allopurinol [Zyloprim 300 MG] 300 mg PO DAILY 10/28/15 [History] Gabapentin [Neurontin] 300 tab PO BID 10/28/15 [History] Omeprazole [PriLOSEC] 20 mg PO DAILY 10/28/15 [History] FLUoxetine HCl [Fluoxetine HCl] 10 mg PO DAILY 09/23/18 [History] Calcium Carbonate [Calcium] 500 mg PO DAILY 10/25/18 [History] Atorvastatin [Lipitor] 40 mg PO HS 01/20/19 [History] Letrozole [Femara] 2.5 mg PO DAILY 01/20/19 [History] Diltiazem CD (24hr) [Cardizem CD] 120 mg PO DAILY 02/06/19 [History] Albuterol Sulfate [Proventil Inhaler] 2 puff IH Q4HR PRN 03/17/19 [History] Cholecalciferol (D-3) [Vitamin D] 5,000 unit PO DAILY 03/17/19 [History] Lisinopril/Hydrochlorothiazide [Zestoretic 10-12.5 mg Tablet] 1 tab PO DAILY 03/17/19 [History] Magnesium Oxide [Magnesium] 400 mg PO DAILY 03/17/19 [History] Metoprolol XL (24 HR) Succ [Toprol Xl] 25 mg PO DAILY 03/17/19 [History] Enoxaparin [Lovenox] 30 mg SQ Q12HR 14 Days #28 syringe 03/19/19 [Rx] Ferrous Sulfate 325 mg PO BIDWM tablet 03/19/19 [Rx] OxyCODONE Immed Rel [Roxicodone 5 MG] 5 mg PO Q4HR PRN 03/21/19 [History] Tramadol HCl [Ultram] 1 tab PO BID PRN 03/21/19 [History] Acetaminophen [Tylenol] 1,000 mg PO Q4HR PRN tablet 03/27/19 [Rx] Allergies/Adverse Reactions: Allergy/AdvReac Type Severity Reaction Status Date / Time No Known Allergies Allergy Verified 03/17/19 07:05 Date of admission: 03/21/19 20:11 Primary care physician: Felisha Coyle MD Consults: 03/21/19 20:45 Consult to Occupational Therapy [CONS] Routine Comment: Evaluate, develop and implement POC Reason for Consult: eval / tx Does patient have active BEDREST order?: No Is patient medically & hemodynamically stable?: Yes Patient assessed for mobility or mobilized this visit?: No Consult to Physical Medicine/Rehab [CONS] Routine Reason for Consult: rehab Call Completed: No Consult to Physical Therapy [CONS] Routine Comment: Evaluate, develop and implement POC Reason for Consult: eval / tx Does patient have active BEDREST order?: No Is patient medically & hemodynamically stable?: Yes Patient assessed for mobility or mobilized this visit?: No Consult to Recreational Therapy [CONS] Routine Comment: Evaluate, develop and implement POC Consult to Research Director [CONS] Routine Reason for SW Consult: d/c planning - Constitutional Vitals: Temp Pulse Resp BP Pulse Ox 98.8 F 89 16 107/70 93 03/27/19 07:16 03/27/19 07:16 03/27/19 07:16 03/27/19 07:16 03/27/19 07:16 General appearance: Present: A&O X 3, pleasant, answers questions appropriately - Head Head exam: Present: atraumatic, normocephalic - Neck Neck exam general surgery: Present: normal inspection, supple, trachea midline. Absent: lymphadenopathy - Respiratory Respiratory exam: Present: CTAB - Cardiovascular Cardiovascular exam: Present: RRR, +S1, +S2. Absent: systolic murmur - GI/Abdominal GI/Abdominal exam: Present: normal bowel sounds, soft, no peritoneal signs. Absent: distended, guarding, mass, tenderness - Extremities Exam Extremities exam: Present: normal capillary refill, pedal edema (Thigh edema has almost resolved), warm - Skin Skin exam: Present: dry, warm. Absent: rash - Patient Status Disposition: Home, Self-Care Condition: Good Functional capacity at discharge: uses cane/walker Overall status at discharge: patient is progressing back to baseline - Discharge Instructions Instructions: Wound Infection (DC), Total Hip Replacement (DC) Follow Up With: Shiloh Rebollar PAC [Physician Caramel Cutter Helper] - 04/04/19 9:00 am Jarocho Waterman MD [Partnered Physician] - 04/16/19 5:20 pm Felisha Coyle MD [Primary Care Provider] - 04/02/19 9:45 am - Diet and Activity Activity: as per physical therapy Diet: low fat, low cholesterol
[2019-03-28] MEDS: *HR* OxyCODONE Immed Rel 5 MG TABLET PO PRN ×3 (00:46→09:59)
[2019-03-28] MEDS: *HR* Enoxaparin 30 MG/0.3 ML SYRINGE SQ SCH (05:03)
[2019-03-28 06:00] LABS: Basophils % 0.5 %; Eosinophils # 0.4 K/mcL (0.0-0.6); Eosinophils % 4.9 %; Hematocrit 25.3 % (35.3-44.9); Hemoglobin 8.2 g/dL (11.5-15.4); Immature Granulocytes % 0.6 % (0-4); Lymphocytes # 1.3 K/mcL (0.6-4.6); Lymphocytes % 16.7 %; Mean Corpuscular HGB Conc 32.4 g/dL (31.6-35.5); Mean Corpuscular Hemoglobin 32.9 pg (28.0-33.3); Mean Corpuscular Volume 101.6 fL (83.0-100.0); Mean Platelet Volume 10.8 fL (9.4-12.4); Monocytes # 0.9 K/mcL (0.0-1.3); Monocytes % 11.7 %; Neutrophils # 5.2 K/mcL (1.6-8.9); Platelet Count 287 K/mcL (140-400); Red Blood Count 2.49 M/mcL (3.82-4.97); Red Cell Distribution Width 15.3 % (11.5-14.5); Segmented Neutrophils % 65.6 %
[2019-03-28 06:15] LABS: BUN/Creatinine Ratio 28 (6-26); Blood Urea Nitrogen 18 mg/dL (8-23); Calcium 9.1 mg/dL (8.6-10.3); Carbon Dioxide 31 mEq/L (23-29); Chloride 100 mEq/L (98-107); Glucose 99 mg/dL (70-105); Osmolality,Calculated 280 (280-300); Sodium 134 mEq/L (136-145); eGFR For African Americans > 60 (> 60); eGFR For Non-African Americans > 60 (> 60)
[2019-03-28 07:34] VITALS: BP 112/75
[2019-03-28] MEDS: Metoprolol XL (24 HR) Succ 25 MG TAB.ER.24H PO SCH (08:22)
[2019-03-28] MEDS: Diltiazem CD (24hr) 120 MG CAPSULE PO SCH (08:22)
[2019-03-28] MEDS: FLUoxetine HCl 10 MG CAPSULE PO SCH (08:22)
[2019-03-28] MEDS: Gabapentin 300 MG CAPSULE PO SCH (08:22)
[2019-03-28] MEDS: Magnesium Oxide 400 MG TABLET PO SCH (08:22)
[2019-03-28] MEDS: Cholecalciferol (D-3) 1,000 UNIT (25MCG) TABLET PO SCH (08:23)
[2019-04-13] MEDS ORDERED: Letrozole 2.5 MG TABLET PO SCH (09:00)
== END 2019-03-28 14:23 | disposition home or self-care (01) | DRG 560 ==
LOC: INPGRE 03-21 20:11
PROVIDERS: ADMIT Family Medicine; ATTEND Family Medicine